=== PATIENT | female | born 1930 | race Caucasian/White ===

== ENCOUNTER → 2018-05-29 | Outpatient (CLI) | payer OTHER ==
[~2018-05-29] MED LIST: ACET325 PO; DONE10 PO; DONE5; LEVOTHYROXINE PO; LEVSOD50 PO; LOVA20 PO
== END | disposition home or self-care (01) ==
LOC: LAB SHORT 11:53 → LAB 11:53
DX: R30.0 Dysuria (principal)
CPT/HCPCS: 87086